=== PATIENT | female | born 1990 | race Caucasian/White ===

== ENCOUNTER 2019-09-27 07:30 | Emergency (ER) | payer OTHER ==
[~2019-09-27] VITALS: Ht 154.9 cm; Wt 47.0 kg
--- NOTE | 2019-09-27 07:45 | NUR ---
Bandaid to right index finger CDI, no pain.
[2019-09-27 08:55] VITALS: BP 116/77
[2019-09-27 10:49] LABS: HIV ANTIBODY 1&2 RAPID NON-REACTIVE (Neg)
[2019-09-29 11:04] LABS: HEP B CORE AB, TOT Negative (Negative); HEPATITIS C ANTIBODY <0.1 s/co ratio (0.0-0.9)
== END 2019-09-27 08:56 | disposition home or self-care (01) ==
LOC: ER 07:31
DX: S61.230A Puncture wound without foreign body of right index finger without damage to nail, initial encounter (principal); F17.200 Nicotine dependence, unspecified, uncomplicated; W46.1XXA Contact with contaminated hypodermic needle, initial encounter; Y93.89 Activity, other specified; Y92.238 Other place in hospital as the place of occurrence of the external cause; Y99.9 Unspecified external cause status
CPT/HCPCS: 36415; 86703; 86704; 86705; 86706; 86803; 99283

== ENCOUNTER 2021-01-24 08:04 | Emergency (ER) | payer MEDICAID, OTHER ==
[~2021-01-24] VITALS: Ht 157.5 cm; Wt 45.5 kg
[2021-01-24 08:35] VITALS: BP 122/69
[2021-01-24] MEDS ORDERED: NAPH15DR8 EACHEYE (08:48)
== END 2021-01-24 09:22 | disposition home or self-care (01) ==
LOC: ER 08:05
DX: H10.33 Unspecified acute conjunctivitis, bilateral (principal); H57.13 Ocular pain, bilateral; F12.90 Cannabis use, unspecified, uncomplicated; Z79.899 Other long term (current) drug therapy
CPT/HCPCS: 99282